=== PATIENT | male | born 2000 | race Asian ===

== ENCOUNTER 2018-08-16 14:49 | Emergency (ER) | payer OTHER ==
[2018-08-16] MEDS ORDERED: NS 1,000 ML IV ONE (15:27)
[2018-08-16] MEDS ORDERED: HYDROmorphONE/DILAUDID 2 MG/ML INJ IVP ONE (15:27)
[2018-08-16] MEDS ORDERED: ONDANSETRON 4 MG/2 ML VIAL IVP ONE (15:27)
--- NOTE | 2018-08-16 15:29 | EDPHY ---
H & P Stated Complaint: r sided abd pain x 3 days Time Seen by Provider: 08/16/18 15:20 HPI/ROS: CHIEF COMPLAINT: Right upper quadrant pain HISTORY OF PRESENT ILLNESS: Patient is a 18-year-old man who comes to the emergency department complaining of right upper quadrant pain that is worse when he eats. It has been intermittent for the last 4 days. No fever. No vomiting. No diarrhea. No history of abdominal surgeries. He initially pointed to his right lower quadrant as the source pain but with further examination says that now that it is the right upper quadrant. Severity: Moderate Modifying factors: Worsened by eating or movement REVIEW OF SYSTEMS: Constitutional: denies: chills, fever, recent illness, recent injury EENTM: denies: blurred vision, double vision, nose congestion Respiratory: denies: cough, shortness of breath Cardiac: denies: chest pain, irregular heart rate, lightheadedness, palpitations Gastrointestinal/Abdominal: See HPI denies: diarrhea, nausea, vomiting, blood streaked stools Genitourinary: denies: dysuria, frequency, hematuria, pain Musculoskeletal: denies: joint pain, muscle pain Skin: denies: lesions, rash, jaundice, bruising Neurological: denies: headache, numbness, paresthesia, tingling, dizziness, weakness Hematologic/Lymphatic: denies: blood clots, easy bleeding, easy bruising Immunologic/allergic: denies: HIV/AIDS, transplant 10 systems reviewed and negative except as noted EXAM: GENERAL: Well-appearing, well-nourished and in no acute distress. HEAD: Atraumatic, normocephalic. EYES: Pupils equal round and reactive to light, extraocular movements intact, sclera anicteric, conjunctiva are normal. ENT: TMs normal, nares patent, oropharynx clear without exudates. Moist mucous membranes. NECK: Normal range of motion, supple without lymphadenopathy or JVD. LUNGS: Breath sounds clear to auscultation bilaterally and equal. No wheezes rales or rhonchi. HEART: Regular rate and rhythm without murmurs, rubs or gallops. ABDOMEN: Right upper quadrant tenderness, negative Hebert's, normoactive bowel sounds. No guarding, no rebound. No masses appreciated. No testicular pain or tenderness. BACK: No CVA tenderness, no spinal tenderness, step-offs or deformities EXTREMITIES: Normal range of motion, no pitting or edema. No clubbing or cyanosis. NEUROLOGICAL: Cranial nerves II through XII grossly intact. Normal speech, normal gait. 5/5 strength, normal movement in all extremities, normal sensation , normal reflexes PSYCH: Normal mood, normal affect. SKIN: Warm, dry, normal turgor, no visible rashes or lesions. Source: Patient Exam Limitations: No limitations - Personal History Current Tetanus Diphtheria and Acellular Pertussis (TDAP): Unsure - Medical/Surgical History Hx Asthma: No Hx Chronic Respiratory Disease: No Hx Diabetes: No Hx Cardiac Disease: No Hx Renal Disease: No Hx Cirrhosis: No Hx Alcoholism: No Hx HIV/AIDS: No Hx Splenectomy or Spleen Trauma: No Other PMH: denies - Family History Significant Family History: No pertinent family hx - Social History Smoking Status: Never smoked Alcohol Use: Sober Drug Use: None Constitutional: Initial Vital Signs Temperature (C) 36.5 C 08/16/18 14:53 Heart Rate 90 08/16/18 14:53 Respiratory Rate 17 08/16/18 14:53 Blood Pressure 129/90 H 08/16/18 14:53 O2 Sat (%) 96 08/16/18 14:53 O2 Delivery Mode Room Air Allergies/Adverse Reactions: No Known Allergies Allergy (Unverified 08/16/18 14:53) Home Medications: Medication Instructions Recorded NK [No Known Home Meds] 08/16/18 Medical Decision Making - Diagnostics Imaging Results: Imaging Impressions Abdomen Ultrasound 08/16/18 15:27 Impression: 1. No cholelithiasis or biliary ductal dilation. 2. Hepatic steatosis and mild hepatomegaly without ascites. Findings and recommendations discussed with Emergency Department physician, JUAN CARABALLO at 16:11 hour, 08/16/2018. Final report concurs with initial preliminary interpretation. Pelvic/Renal Ultrasound 08/16/18 15:27 Impression: 1. Appendix not identified. 2. Consider additional CT imaging if clinically indicated. Findings and recommendations discussed with Emergency Department physicianJUAN at 16:12 hour, 08/16/2018. Final report concurs with initial preliminary interpretation. Abdomen CT 08/16/18 16:17 Impression: Unremarkable CT examination of the abdomen and pelvis. No CT evidence of acute appendicitis. Results called to Dr. Caraballo at 5:20 PM. Imaging: Discussed imaging studies w/ manager call Radiologist ED Course/Re-evaluation: 4:15 p.m. Patient's lab work and ultrasound are reassuring. When I evaluated him again he states that he still having pain and points to his right lower quadrant. This is very initially pointed to but seemed more tender in the right upper quadrant. I will obtain a CT scan for further evaluation. 5:[address] patient[address] CT scan is reassuring. He is currently symptom free. He denies dysuria. I will discharge him at this time and we discussed indications for returning. He Differential Diagnosis: Partial list of the Differential diagnosis considered include but were not limited to; biliary disease, appendicitis, kidney stone and although unlikely based on the history and physical exam, I also considered urinary tract infection, obstruction. I discussed these differential diagnoses and the plan with the patient as well as the usual and expected course. The patient understands that the diagnosis is provisional and that in medicine we are not always correct and that further workup is often warranted. Usual and customary warnings were given. All of the patient's questions were answered. The patient was instructed to return to the emergency department should the symptoms at all worsen or return, otherwise to followup with the physician as we discussed. - Data Points Laboratory Results: Laboratory Results 08/16/18 15:30 08/16/18 15:30 08/16/18 08/16/18 08/16/18 16:15 15:30 15:30 WBC 5.02 10^3/uL 10^3/uL (3.80-9.50) RBC 5.76 10^6/uL 10^6/uL (4.40-6.38) Hgb 17.1 g/dL g/dL (13.7-17.5) Hct 50.2 % % (40.0-51.0) MCV 87.2 fL fL (81.5-99.8) MCH 29.7 pg pg (27.9-34.1) MCHC 34.1 g/dL g/dL (32.4-36.7) RDW 11.8 % % (11.5-15.2) Plt Count 256 10^3/uL 10^3/uL (150-400) MPV 10.8 fL fL (8.7-11.7) Neut % (Auto) 62.9 % % (39.3-74.2) Lymph % (Auto) 26.7 % % (15.0-45.0) [place] % (Auto) 6.8 % % (4.5-13.0) Eos % (Auto) 2.0 % % (0.6-7.6) Baso % (Auto) 1.0 % % (0.3-1.7) Nucleat RBC Rel Count 0.0 % % (0.0-0.2) Absolute Neuts (auto) 3.16 10^3/uL 10^3/uL (1.70-6.50) Absolute Lymphs (auto) 1.34 10^3/uL 10^3/uL (1.00-3.00) Absolute Monos (auto) 0.34 10^3/uL 10^3/uL (0.30-0.80) Absolute Eos (auto) 0.10 10^3/uL 10^3/uL (0.03-0.40) Absolute Basos (auto) 0.05 10^3/uL 10^3/uL (0.02-0.10) Absolute Nucleated RBC 0.00 10^3/uL 10^3/uL (0-0.01) Immature Gran % 0.6 % % (0.0-1.1) Immature Gran # 0.03 10^3/uL 10^3/uL (0.00-0.10) Sodium 142 mEq/L mEq/L (135-145) Potassium 4.4 mEq/L mEq/L (3.3-5.0) Chloride 105 mEq/L mEq/L (97-110) Carbon Dioxide 26 mEq/l mEq/l (22-31) Anion Gap 11 mEq/L mEq/L (8-16) BUN 14 mg/dL mg/dL (7-23) Creatinine 0.9 mg/dL mg/dL (0.7-1.3) Estimated GFR > 60 Glucose 94 mg/dL mg/dL (70-100) Calcium 10.1 mg/dL mg/dL (8.5-10.4) Total Bilirubin 0.5 mg/dL mg/dL (0.1-1.4) Conjugated Bilirubin 0.2 mg/dL mg/dL (0.0-0.5) Unconjugated Bilirubin 0.3 mg/dL mg/dL (0.0-1.1) AST 32 IU/L IU/L (17-59) ALT 79 IU/L H IU/L (21-72) Alkaline Phosphatase 84 IU/L IU/L (38-126) Total Protein 7.7 g/dL g/dL (6.3-8.2) Albumin 4.8 g/dL g/dL (3.5-5.0) Lipase 41 IU/L IU/L (23-300) Urine Color YELLOW Urine Appearance CLEAR Urine pH 5.0 (5.0-7.5) Ur Specific [place] 1.018 (1.002-1.030) Urine Protein NEGATIVE (NEGATIVE) Urine Ketones NEGATIVE (NEGATIVE) Urine Blood NEGATIVE (NEGATIVE) Urine Nitrate NEGATIVE (NEGATIVE) Urine Bilirubin NEGATIVE (NEGATIVE) Urine Urobilinogen NEGATIVE EU EU (0.2-1.0) Ur Leukocyte Esterase NEGATIVE (NEGATIVE) Urine RBC 1-3 /hpf /hpf (0-3) Urine WBC 3-5 /hpf H /hpf (0-3) Ur Epithelial Cells TRACE /lpf /lpf (NONE-1+) Urine Glucose NEGATIVE (NEGATIVE) Medications Given: Discontinued Medications Hydromorphone HCl (Dilaudid) 0.5 mg IVP EDNOW ONE Stop: 08/16/18 15:28 Last Admin: 08/16/18 15:59 Dose: 0.5 mg Sodium Chloride (Ns) 1,000 mls @ 0 mls/hr IV EDNOW ONE; Wide Open PRN Reason: Protocol Stop: 08/16/18 15:28 Last Admin: 08/16/18 15:59 Dose: 1,000 mls Ondansetron HCl (Zofran) 4 mg IVP EDNOW ONE Stop: 08/16/18 15:28 Last Admin: 08/16/18 16:00 Dose: 4 mg Departure - Departure Disposition: Home, Routine, Self-Care Clinical Impression: Abdominal pain Qualifiers: Abdominal location: unspecified location Qualified Code(s): R10.9 - Unspecified abdominal pain Condition: Fair Instructions: Abdominal Pain (ED) Referrals: NONE *PRIMARY CARE P,. [Primary Care Provider] - As per Instructions AGNES TABOR [Medical Doctor] - As per Instructions
[2018-08-16 16:03] LABS: PLATELET COUNT 256 10^3/uL (150-400)
[2018-08-16] MEDS ORDERED: IOPAMIDOL (ISOVUE-300) 100 ML BTL ONE (16:31)
[2018-08-16 18:01] VITALS: BP 127/79
== END 2018-08-16 18:01 | disposition home or self-care (01) ==
DX: R10.31 Right lower quadrant pain (principal); E86.9 Volume depletion, unspecified
CPT/HCPCS: 96374; J1170; J2405; Q9967